=== PATIENT | female | born 1975 | race Caucasian/White ===

== ENCOUNTER 2017-11-06 10:13 | Emergency (ER) | payer OTHER ==
[~2017-11-06] VITALS: Ht 167.6 cm; Wt 64.0 kg
--- NOTE | 2017-11-06 11:08 | ED GI/GU/ABDOMINAL COMPLAINT ---
History of Present Illness General Chief Complaint: Abdominal Pain/Flank Pain Stated Complaint: SIB MD ALVAREZ PAIN Source: patient Exam Limitations: no limitations Vital Signs & Intake/Output Vital Signs & Intake/Output Vital Signs Date Time Temp Pulse Resp B/P B/P Pulse O2 O2 Flow FiO2 Mean Ox Delivery Rate 11/06 1433 97.1 57 20 118/59 100 Room Air 11/06 1222 98.8 53 18 116/66 99 Room Air 11/06 1020 97.1 67 20 133/93 96 Room Air Allergies Coded Allergies: azithromycin (UNKNOWN 11/06/17) erythromycin base (UNKNOWN 11/06/17) hydrocodone (UNKNOWN 11/06/17) Reconcile Medications Cetirizine HCl (Zyrtec) 10 MG TABLET 1 TAB PO DAILY ALLERGIES (Reported) Hyoscyamine (Levsin) 0.125 MG TABLET 1 TAB PO Q4 PRN ABDOMINAL SPASMS Magnesium Oxide 400 MG TABLET 1 TAB PO DAILY SUPPLEMENT (Reported) Triage Note: PT ABISAI HARSH SALINAS FOR 3 DAY HX OF EPIGASTIC PAIN. VOMITING AND DIARRHEA ON SATURDAY, LOW GRADE FEVER, SLEPT MOST OF SATURDAY. CONTINUED PAIN ON SATURDAY, NO EATING, PAIN CONTINUED YESTERDAY, ATE SMALL AMOUNT, NAUSEA NO BM SINCE SATURDAY. HAS TAKEN TYLENOL FOR PAIN WITH SOME RELIEF. PER HARSH SALINAS QUESTION OF SALMONELLA POISONING Triage Nurses Notes Reviewed? yes ? n Is pt currently ? No Onset: Gradual Duration: day(s): (3-4) Timing: no prior history Quality/Severity: cramping Location: generalized abdomen Radiation: no radiation Activities at Onset: none No Modifying Factors: none Associated Symptoms: diarrhea, nausea/vomiting HPI: Patient is a 42-year-old female presenting to the emergency department with chief complaint of epigastric and right upper quadrant pain that radiates to the right shoulder is been going on and off for the past 4 days. Symptoms started 4 days ago with nausea vomiting and diarrhea. It woke her up from sleep. She reports approximately 4 episodes of vomiting that was nonbloody and nonbilious. Approximately 8-10 episodes of diarrhea. Symptoms lasted for 24 hours and the nausea vomiting and diarrhea stops. She continued to have the discomfort over the past 3 days. She was handling raw chicken prior to onset of symptoms. No bloody diarrhea. She reports fevers up to 100F and chills. Has been taking Tylenol witH some relief. No history of similar symptoms in the past. Pain is currently 6 out of 10. Intermittent sharp and stabbing. Denies chest pain palpitations or shortness of breath. (Aida Loza) Past History Travel History Traveled to [place] past 21 day No Medical History Any Pertinent Medical History? see below for history Psychiatric: anxiety, depression Surgical History Surgical History: hysterectomy Psychosocial History Who do you live with Family What is your primary language Portuguese Tobacco Use: Never used ETOH Use: occasional use Illicit Drug Use: denies illicit drug use Family History Hx Contributory? No (Aida Loza) Review of Systems Review of Systems Constitutional: Reports: malaise. Comments Review of systems: See HPI, All other systems negative. Constitutional, no chills fever or weight loss HEENT: No visual changes no sore throat no congestion Cardiovascular: No chest pain ,palpitation , orthopnea or ankle swelling Skin, no jaundice no rashes Respiratory: No dyspnea cough sputum or hemoptysis GI: pos n/v/d : No dysuria No hematuria Muscle skeletal: no back pain, no neck pain, Neurologic: No numbness no confusion no headaches Psych: No increased stress anxiety or depression,. Heme/endocrine: No bruising no bleeding no polyuria or polydipsia Immunology: No splenectomy or history of AIDS (Aida Loza) Physical Exam Physical Exam General Appearance: well developed/nourished, alert, awake, mild distress Gastrointestinal: tenderness Comments: Well-developed well-nourished person in no acute distress HEENT: . Pupils equally round and reactive to light and accommodation. Nose is atraumatic. External auditory canal and Tympanic membranes clear. Pharynx normal. No swelling or edema. Neck: Supple, no lymphadenopathy Back: Nontender, no CVA tenderness. Cardiovascular: Regular rate and rhythms no murmurs rubs or gallops, normal JVP Respiratory: Chest nontender. No respiratory distress.breath sounds clear to auscultation bilaterally Abdomen: Soft, tender to palpation in the epigastric region and right upper quadrant, positive Tinsley sign, tenderness also to palpation in the left lower quadrant with guarding. Nondistended, no appreciable organomegaly. Normal bowel sounds. No ascites Extremity: No edema Neuro: Alert oriented x3 Skin: No appreciable rash on exposed skin, skin is warm and dry. Psych: Mood and affect is normal, memory and judgment is normal. Core Measures ACS in differential dx? No Sepsis Present: No Sepsis Focused Exam Completed? No (Jese DONOHUE,Aida) Progress Differential Diagnosis: HEPATITIS, VIRAL SYNDROME, CHOLANGITIS, CHOLECYSTITIS, BILIARY COLIC Plan of Care: Orders Procedure Date/time Status Add-on Test (ER Only) 11/06 1215 Active EKG 11/06 1141 Active Add-on Test (ER Only) 11/06 1133 Active CULTURE,STOOL 11/06 1133 Active C.DIFFICILE 11/06 1133 Active TROPONIN LEVEL 11/06 1116 Complete LIPASE 11/06 1116 Complete AMYLASE 11/06 1116 Complete URINE 11/06 1016 Complete URINALYSIS 11/06 1016 Complete HUMAN BETA HCG SCREEN 11/06 1016 Complete COMPREHENSIVE METABOLIC PANEL 11/06 1016 Complete CBC WITHOUT DIFFERENTIAL 11/06 1016 Complete Laboratory Tests 11/06/17 1152: Urinalysis LIGHT H, Urine Color YEL, Urine Clarity HAZY H, Urine pH 6.0, Ur Specific [place] 1.020, Urine Protein NEG, Urine Ketones TRACE H, Urine Nitrite NEG, Urine Bilirubin NEG, Urine Urobilinogen 0.2, Ur Leukocyte Esterase NEG, Ur Microscopic SEDIMENT EXAMINED, Urine RBC 1-3, Urine WBC 1-3 H, Ur Epithelial Cells MANY H, Urine Bacteria MANY H, Granular Casts RARE H, Urine Mucus FEW, Urine Hemoglobin NEG, Urine Glucose NEG, Urine Test NEGATIVE 11/06/17 1116: Anion Gap 9, Estimated GFR > 60, BUN/Creatinine Ratio 15.0, Glucose 91, Calcium 10.2, Total Bilirubin 0.6, AST 28, ALT 32, Alkaline Phosphatase 76, Troponin I < 0.01, Total Protein 8.1, Albumin 4.7, Globulin 3.4, Albumin/Globulin Ratio 1.4, Amylase 53, Lipase 226, Total Beta HCG NEGATIVE, CBC w Diff NO MAN DIFF REQ, RBC 4.83, MCV 87.7, MCH 30.0, RDW 12.2, MPV 8.6, Gran % 67.9, Lymphocytes % 22.0, Monocytes % 9.3, Eosinophils % 0.6, Basophils % 0.2, Absolute Granulocytes 4.3, Absolute Lymphocytes 1.4, Absolute Monocytes 0.6, Absolute Eosinophils 0, Absolute Basophils 0, PUBS MCHC 34.2 Microbiology 11/06 1133 STOOL: Clostridium difficile Toxin A & B - ORD 11/06 1133 STOOL: Stool Culture - ORD 11/06/2017 2:17:56 PM patient feeling improved after IV Toradol, no longer has pain. Abdomen is still soft but nontender at this point. She was informed of all labs. CT scan negative for any acute pathology. Likely viral in nature. Patient will be discharged with Levsin. She'll follow up with her primary care physician. Unable to pry it stool sample here in the emergency department so she will go home with a cup and prescription drop off at the lab. Patient nontoxic. Discussed with Dr. Olvera and he agrees with plan. Diagnostic Imaging: Viewed by Me: CT Scan. Discussed w/RAD: CT Scan. Radiology Impression: PATIENT: AMARI LIMA PRESENT AGE: 42 PATIENT ACCOUNT NO: [id number] : 74 LOCATION: [facility] ORDERING PHYSICIAN: Aida DONOHUE SERVICE DATE: 11/06/17 EXAM TYPE: CAT - CT ABD & PELVIS W IV CONTRAST EXAMINATION: CT ABDOMEN AND PELVIS WITH CONTRAST CLINICAL INFORMATION: Right upper quadrant pain and diarrhea. Evaluate for biliary process. COMPARISON: CT images of abdomen pelvis, 2011 TECHNIQUE: Multidetector volumetric imaging was performed of the abdomen and pelvis following IV administration of 95 mL of Optiray 320 intravenous contrast. Sagittal and coronal reformatted images were obtained on the technologist's workstation. DLP: 278 mGy-cm FINDINGS: LUNG BASES: The visualized lung bases are unremarkable. LIVER, GALLBLADDER, AND BILIARY TREE: Liver has normal size, contour and attenuation. No evidence of liver mass. Gallbladder is physiologically distended and without radiopaque calculi or wall edema. No intrahepatic or extrahepatic bile duct dilatation. PANCREAS: Unremarkable. SPLEEN: Unremarkable. ADRENAL GLANDS: Unremarkable. KIDNEYS AND URETERS: The patient is status post remote left nephrectomy. No soft tissue mass or fluid collection in the nephrectomy bed. The right kidney is normal in size. There are 0.7 cm cortical cysts of the mid and upper pole of the right kidney. No solid renal mass, nephrolithiasis, hydronephrosis or perinephric edema. The right ureter is unremarkable. BLADDER: The urinary bladder is nearly completely empty. No focal bladder wall thickening or bladder calculi. GASTROINTESTINAL TRACT: Bowel loops are normal in size. No evidence of inflammation or obstruction along the gastrointestinal tract. No abdominal ascites, abscess or pneumoperitoneum. ABDOMINAL WALL: There is an old periumbilical hernia containing unobstructed small bowel, similar in appearance compared to 09/15/2012. LYMPH NODES: Normal. VASCULAR: Unremarkable. PELVIC VISCERA: Status post hysterectomy. Normal sized follicles are present within the left ovary. No adnexal mass. There is trace free fluid in the pelvic cul-de-sac. OSSEOUS STRUCTURES: Lumbar vertebra have normal height and alignment. Vacuum disc degenerative change of L5-S1. No suspicious bone lesions. IMPRESSION: 1. No evidence of biliary tract pathology. 2. There are old, small cortical cysts in the mid and upper pole of the right kidney. No suspicious right renal lesion. Left kidney is surgically absent. 3. Old periumbilical hernia contains a short segment of unobstructed small bowel -- similar in appearance compared to 09/15/2012. DICTATED BY: Gareth Flores MD DATE/TIME DICTATED:11/06/171332 SHEATHER:NICK DATE/TIME TRANSCRIBED:11/06/171332 CONFIDENTIAL, DO NOT COPY WITHOUT APPROPRIATE AUTHORIZATION. <Electronically signed in Other Vendor System> SIGNED BY: Gareth Flores MD 11/06/17 134 Initial ED EKG: NSR Prior EKG: unchanged (Aida Loza) Departure Departure Time of Disposition: 1414 Disposition: HOME OR SELF CARE Condition: Stable Clinical Impression Primary Impression: Abdominal pain Qualifiers: Abdominal location: right upper quadrant Qualified Code: R10.11 - Right upper quadrant pain Referrals: Willis Malone (PCP/Family) Additional Instructions: Follow-up with your primary care physician in the next 5-7 days. He will given a prescription to drop off a stool sample at the lab. Increase fluids. Take Levsin out of the bowel discomfort. Return for worsening symptoms or concerns. Departure Forms: Customer Survey General Discharge Information Prescriptions: Current Visit Scripts Hyoscyamine (Levsin) 1 TAB PO Q4 PRN ABDOMINAL SPASMS #20 TAB (Aida Loza) PA/AUTO RADIATOR MECHANIC Co-Sign Statement Statement: ED Attending supervision documentation- [] I saw and evaluated the patient. I have also reviewed all the pertinent lab results and diagnostic results. I agree with the findings and the plan of care as documented in the PA's/AUTO RADIATOR MECHANIC's documentation. [X] I have reviewed the ED Record and agree with the PA's/AUTO RADIATOR MECHANIC's documentation. [] Additions or exceptions (if any) to the PAs/AUTO RADIATOR MECHANIC's note and plan are summarized below: [] (Wade LEROY,Damian Dove)
[2017-11-06 11:26] LABS: ABSOLUTE BASOPHIL COUNT 0 /CUMM (0.0-0.2); ABSOLUTE EOSINOPHIL COUNT 0 /CUMM (0.0-0.7); ABSOLUTE GRANULOCYTE CT 4.3 /CUMM (1.4-6.5); ABSOLUTE LYMPH COUNT 1.4 /CUMM (1.2-3.4); ABSOLUTE MONOCYTE COUNT 0.6 /CUMM (0.10-0.60); BASOPHIL % 0.2 % (0.0-2.0); EOSINOPHIL % 0.6 % (0-5); GRANULOCYTE % 67.9 % (42.2-75.2); HEMATOCRIT 42.3 % (37-47); MEAN CORPUSCULAR HGB CONC 34.2 G/DL (33.0-37.0); MEAN CORPUSCULAR VOLUME 87.7 FL (81.0-99.0); MEAN PLATELET VOLUME 8.6 FL (7.4-10.4); PLATELET COUNT 209 /CUMM (130-400); RBC DISTRIBUTION WIDTH 12.2 % (11.5-14.5); RED BLOOD CELL CT 4.83 /CUMM (4.20-5.40); WHITE BLOOD CELL COUNT 6.4 /CUMM (4.8-10.8)
[2017-11-06] MEDS ORDERED: ZYRTEC10 M3 PO (11:30)
[2017-11-06] MEDS ORDERED: MAGNESIUM OXID400 M1 PO (11:31)
--- NOTE | 2017-11-06 13:48 | CT SCAN REPORT ---
EXAMINATION: CT ABDOMEN AND PELVIS WITH CONTRAST CLINICAL INFORMATION: Right upper quadrant pain and diarrhea. Evaluate for biliary process. COMPARISON: CT images of abdomen pelvis, 09/15/2012 TECHNIQUE: Multidetector volumetric imaging was performed of the abdomen and pelvis following IV administration of 95 mL of Optiray 320 intravenous contrast. Sagittal and coronal reformatted images were obtained on the technologist's workstation. DLP: 278 mGy-cm FINDINGS: LUNG BASES: The visualized lung bases are unremarkable. LIVER, GALLBLADDER, AND BILIARY TREE: Liver has normal size, contour and attenuation. No evidence of liver mass. Gallbladder is physiologically distended and without radiopaque calculi or wall edema. No intrahepatic or extrahepatic bile duct dilatation. PANCREAS: Unremarkable. SPLEEN: Unremarkable. ADRENAL GLANDS: Unremarkable. KIDNEYS AND URETERS: The patient is status post remote left nephrectomy. No soft tissue mass or fluid collection in the nephrectomy bed. The right kidney is normal in size. There are 0.7 cm cortical cysts of the mid and upper pole of the right kidney. No solid renal mass, nephrolithiasis, hydronephrosis or perinephric edema. The right ureter is unremarkable. BLADDER: The urinary bladder is nearly completely empty. No focal bladder wall thickening or bladder calculi. GASTROINTESTINAL TRACT: Bowel loops are normal in size. No evidence of inflammation or obstruction along the gastrointestinal tract. No abdominal ascites, abscess or pneumoperitoneum. ABDOMINAL WALL: There is an old periumbilical hernia containing unobstructed small bowel, similar in appearance compared to 09/15/2012. LYMPH NODES: Normal. VASCULAR: Unremarkable. PELVIC VISCERA: Status post hysterectomy. Normal sized follicles are present within the left ovary. No adnexal mass. There is trace free fluid in the pelvic cul-de-sac. OSSEOUS STRUCTURES: Lumbar vertebra have normal height and alignment. Vacuum disc degenerative change of L5-S1. No suspicious bone lesions. IMPRESSION: 1. No evidence of biliary tract pathology. 2. There are old, small cortical cysts in the mid and upper pole of the right kidney. No suspicious right renal lesion. Left kidney is surgically absent. 3. Old periumbilical hernia contains a short segment of unobstructed small bowel -- similar in appearance compared to 09/15/2012.
[2017-11-06] MEDS ORDERED: LEVSIN0.125 M1 PO (14:17)
[2017-11-06 14:33] VITALS: BP 118/59
== END 2017-11-06 14:57 ==
LOC: ERH 10:13
PROVIDERS: Physician Assistant Medical
DX: R10.13 Epigastric pain (principal); R10.11 Right upper quadrant pain
CPT/HCPCS: 74177; 81001; 81025; 87045; 93005; 93010; 96361; 96374; 96375; J1885; J2405